=== PATIENT | male | born 1995 | race Caucasian/White ===

== ENCOUNTER 2017-08-23 08:54 | Emergency (ER) | payer SELFPAY ==
[~2017-08-23] VITALS: Ht 175.3 cm; Wt 68.0 kg
--- NOTE | 2017-08-23 09:01 | ER Report ---
History and Physical Time Seen By MD: 09:00 HPI/ROS CC: Nausea vomiting diarrhea HPI: 21-year-old male with a three-day history of nausea vomiting and diarrhea. He states that his diarrhea was 2 days ago and has been much resolved. He has midepigastric pain sharp in nature like a knife that is radiating as a 7 on a 10. There are no alleviating factors. It waxes and wanes. There are no aggravating factors. Patient states that he does drink alcohol both beer and liquor. He states that he drinks twice a week, and he does drink he gets drunk. The last time he consumed alcohol was yesterday. ROS: 12 point review of systems essentially negative other than what's mentioned in history of present illness. NURSES AND OLD MEDICAL RECORDS: Reviewed PMH: Reviewed SURGICAL HX: Reviewed FAMILY HX: Noncontributory SOCIAL HX: He denies smoking drinks alcohol denies illicit drugs. VITAL SIGNS: Reviewed CONSTITUTIONAL: Primary 1-year-old male in minimal distress PHYSICAL EXAM: HEENT: Pupils equal round reactive to light and accommodate, EOMI, tympanic membranes pearly white umbo present with good light reflex. Lips dry mucous membranes moist gums nonbleeding uvula midline and rises equally with phonation, oropharynx noninjected, teeth intact. NECK: Neck supple, thyroid not appreciated, anterior and posterior cervical lymphadenopathy not appreciated. Trachea midline and rises equally with phonation. CARDIAC: S1-S2 regular rate rhythm no murmurs rubs or gallops. LUNGS: Lungs clear bilaterally posteriorly in all dang. Good air movement. ABDOMEN: Abdomen soft, minimal epigastric tenderness with palpation, nondistended, bowel sounds active in all 4 quadrants, no bruits noted, no CVA tenderness. MUSCULOSKELETAL: Strength 5 out of 5 x 4 extremities, no deformities noted. NEUROLOGIC: Patient alert and oriented by 3 Allergies: Coded Allergies: No Known Drug Allergies (Unverified , 08/23/17) Home Meds No Active Prescriptions or Reported Meds Constitutional Vital Sign - Last 24 Hours 08/23/17 09:02 Temp 97.7 Pulse 73 Resp 20 B/P (MAP) 128/87 Pulse Ox 94 O2 Delivery Room Air Medical Decision Making Data Points Laboratory Hematology Test 08/23/17 09:21 Helicobacter pylori IgG Antibody Negative (NEGATIVE) Chemistry Test 08/23/17 09:21 Helicobacter pylori IgG Antibody Negative (NEGATIVE) ED Course/Re-evaluation ED Course Patient received a GI cocktail. Patient is improved. H. pylori is negative. This is most likely gastritis. Patient be discharged home on Zofran. Re-evaluation Medical decision-making includes but not excluded to GERD, H. pylori, gastritis secondary to alcohol consumption, viral gastroenteritis Decision to Disposition Date: Aug 23, 2017 Decision to Disposition Time: 09:53 Depart Departure Latest Vital Signs Vital Signs Date Time Temp Pulse Resp B/P (MAP) Pulse Ox O2 Delivery O2 Flow Rate FiO2 08/23/17 09:02 97.7 73 20 128/87 94 Room Air Impression: Primary Impression: Gastritis due to alcohol without hemorrhage Condition: Improved Disposition: HOME OR SELF-CARE New Scripts Ondansetron (ZOFRAN ODT) 4 Mg Tab.rapdis 8 MG PO Q6H Y for NAUSEA/VOMITING, #20 TAB.JOE 0 Refills Prov: RAIMUNDO BAUER MD 08/23/17 Patient Instructions: Gastritis (ED) Additional Instructions: Drink less alcohol. Follow-up with your regular physician. You have been given Zofran for nausea. Take as directed. I and the staff wanted to thank you for allowing us to take care of your needs today in the emergency department at [facility]. We have tried to answer all of your questions and concerns. Please feel free to return to the emergency department for any further concerns or unanswered questions. Problem Qualifiers Primary Impression: Gastritis due to alcohol without hemorrhage Chronicity: acute Qualified Codes: K29.20 - Alcoholic gastritis without bleeding RAIMUNDO BAUER MD Aug 23, 2017 09:01
[2017-08-23] MEDS ORDERED: MAG HYD/AL HYD/SIMETH 30ML UDC PO ONE (09:10)
[2017-08-23] MEDS ORDERED: ATRO/SCOPOL/HYOSCY/PB 5 ML ELX PO ONE (09:10)
[2017-08-23] MEDS ORDERED: LIDOCAINE 2% VISC SLN 15ML UDC PO ONE (09:10)
[2017-08-23] MEDS ORDERED: ONDA4TAB PO (09:56)
[2017-08-23 09:57] VITALS: BP 123/73
== END 2017-08-23 10:01 | disposition home or self-care (01) ==
LOC: ER 08:54
DX: K29.20 Alcoholic gastritis without bleeding (principal)
CPT/HCPCS: 36415; 86677; 99283